=== PATIENT | female | born 1975 | race Caucasian/White ===

== ENCOUNTER → 2018-01-16 | Outpatient (CLI) | payer BC ==
--- NOTE | 2018-01-19 14:59 | MM ---
Reason for exam: screening (asymptomatic). Last mammogram was performed 4 years and 2 months ago. Physical Findings: A clinical breast exam by your physician is recommended on an annual basis and results should be correlated with mammographic findings. MG Screening Mammo w CAD Bilateral CC and MLO view(s) were taken. Prior study comparison: November 09, 2013, bilateral digital screening mammo w/CAD. No significant changes when compared with prior studies. ASSESSMENT: Benign, BI-RAD 2 RECOMMENDATION: Routine screening mammogram of both breasts in 1 year.
== END | disposition home or self-care (01) ==
LOC: RADMAMWWP 08:08
PROVIDERS: ATTEND Obstetrics & Gynecology
DX: Z12.31 Encounter for screening mammogram for malignant neoplasm of breast (principal)
CPT/HCPCS: 77067

== ENCOUNTER → 2018-02-27 | Outpatient (CLI) | payer BC ==
--- NOTE | 2018-02-27 14:41 | US ---
EXAMINATION TYPE: US venous doppler duplex LE LT DATE OF EXAM: 02/27/2018 2:26 PM COMPARISON: NONE CLINICAL HISTORY: M79.609 PAIN RULE OUT DVT. SIDE PERFORMED: Left TECHNIQUE: The lower extremity deep venous system is examined utilizing real time linear array sonog brennen with graded compression, doppler sonography and color-flow sonography. VESSELS IMAGED: External Iliac Vein (EIV) Common Femoral Vein Deep Femoral Vein Greater Saphenous Vein * Femoral Vein Popliteal Vein Small Saphenous Vein * Proximal Calf Veins (* superficial vessels) Patient of large body habitus. Patient couldn't tolerate compression's in groin. Left Leg: Negative for DVT Results phoned to Carmela at Dr. García's office immediately following exam. IMPRESSION: 1. Left lower extremity ultrasound negative for deep venous thrombosis.
== END | disposition home or self-care (01) ==
LOC: RADUSWWP 13:59
PROVIDERS: ATTEND Internal Medicine
DX: M79.605 Pain in left leg (principal)

== ENCOUNTER 2020-06-21 19:41 | Observation (INO) | payer BC ==
[2020-06-21 21:44] LABS: Basophils % (A) 1 %; Eosinophils # (A) 0.1 k/uL (0-0.7); Eosinophils % (A) 1 %; HCT 42.4 % (34.0-46.0); HGB 13.7 gm/dL (11.4-16.0); Lymphocytes # (A) 1.8 k/uL (1.0-4.8); Lymphocytes % (A) 21 %; MCH 29.2 pg (25.0-35.0); MCHC 32.3 g/dL (31.0-37.0); MCV 90.3 fL (80.0-100.0); Mean Platelet Volume 8.6; Monocytes # (A) 0.3 k/uL (0-1.0); Monocytes % (A) 4 %; Neutrophils # (A) 6.4 k/uL (1.3-7.7); Neutrophils % (A) 73 %; Platelet Count 232 k/uL (150-450); RDW 13.1 % (11.5-15.5); WBC 8.7 k/uL (3.8-10.6)
[2020-06-21 21:51] LABS: ALT 21 U/L (4-34); AST 22 U/L (14-36); African American GFR (CKD) >90 (>60 ml/min/1.73 sqM); Albumin 4.5 g/dL (3.5-5.0); Alkaline Phosphatase 68 U/L (38-126); Anion Gap 7 mmol/L; Blood Urea Nitrogen 12 mg/dL (7-17); Calcium 9.5 mg/dL (8.4-10.2); Carbon Dioxide 23 mmol/L (22-30); Chloride 104 mmol/L (98-107); Glucose 101 mg/dL (74-99); Non-African American GFR(CKD) >90 (>60 ml/min/1.73 sqM); Sodium 134 mmol/L (137-145); Total Bilirubin 0.6 mg/dL (0.2-1.3); Total Protein 7.7 g/dL (6.3-8.2)
--- NOTE | 2020-06-21 21:56 | XR ---
EXAMINATION TYPE: XR chest 2V DATE OF EXAM: 06/21/2020 COMPARISON: NONE HISTORY: Short of breath TECHNIQUE: 2 views FINDINGS: Heart and mediastinum are normal. Lungs are clear. Diaphragm is normal. Bony thorax appears normal. IMPRESSION: Normal chest.
[2020-06-21 22:09] LABS: D-Dimer 0.56 mg/L FEU (<0.60); INR 0.9 (<1.2); Partial Thromboplastin Time 22.2 sec (22.0-30.0); Prothrombin Time 9.4 sec (9.0-12.0)
[2020-06-21] MEDS ORDERED: ASPIRIN 81 MG PO STA (22:27)
[2020-06-21] MEDS ORDERED: CALCIUM CARBONATE 500 MG CHEWABLE PO STA (23:18)
[2020-06-21] MEDS ORDERED: NITROGLYCERIN SL TABS 0.4 MG TAB SUBLINGUAL PRN (23:25)
--- NOTE | 2020-06-21 23:27 | ED ---
General Adult HPI - General Chief complaint: Extremity Injury, Lower Stated complaint: SOB,Poss blood clot left leg Time Seen by Provider: 06/21/20 21:15 Source: patient, RN notes reviewed, old records reviewed Mode of arrival: ambulatory Limitations: no limitations - History of Present Illness Initial comments: 45-year-old female patient to ED for evaluation. Patient reports that for the last 3 days she has been having some substernal burning, some generalized chest tightness. She reports that he had some pain in her posterior thigh. Patient had a minor fall yesterday landing on her head. Has been able to without difficulty. As a trauma to head or neck. Denies any prior cardiac history. Denies any other acute complaints. Patient had a cold with past outpatient does not yet have results. Systemic: Pt denies fatigue, fever/chills, rash. Pt denies weakness, night sweats, weight loss. Neuro: Pt denies headache, visual disturbances, syncope or pre-syncope. HEENT: Pt denies ocular discharge or irritation, otalgia, rhinorrhea, pharyngiti s or notable lymphadenopathy. Cardiopulmonary: Pt denies chest pain, SOB, heart palpitations, dyspnea on exertion. Abdominal/GI: Pt denies abdominal pain, n/v/d. : Pt denies dysuria, burning w/ urination, frequency/urgency. Denies new onset urinary or bowel incontinence. MSK: Pt denies myalgia, loss of strength or function in extremities. Neuro: Pt denies new onset weakness, paresthesias. - Related Data Home Medications Medication Instructions Recorded Confirmed Cholecalciferol [Vitamin D3 (25 1,000 unit PO DAILY 06/21/20 06/21/20 Mcg = 1000 Iu)] Allergies Allergy/AdvReac Type Severity Reaction Status Date / Time nickel AdvReac Rash/Hives Verified 06/21/20 21:56 Review of Systems ROS Statement: Those systems with pertinent positive or pertinent negative responses have been documented in the HPI. ROS Other: All systems not noted in ROS Statement are negative. Past Medical History Past Medical History: Thyroid Disorder History of Any Multi-Drug Resistant Organisms: None Reported Additional Past Surgical History / Comment(s): lipoma removed from back, oral surgery Past Anesthesia/Blood Transfusion Reactions: No Reported Reaction Past Psychological History: No Psychological Hx Reported Smoking Status: Former smoker Past Alcohol Use History: Occasional Past Drug Use History: None Reported - Past Family History Father Family Medical History: No Reported History General Exam - General Exam Comments Initial Comments: Constitutional: NAD, AOX3, Pt has pleasant affect. HEENT: NC/AT, trachea midline, neck supple, no lymphadenopathy. Posterior pharynx non erythematous, without exudates. External ears appear normal, without discharge. Mucous membranes moist. Eyes PERRLA, EOM intact. There is no scleral icterus. No pallor noted. Cardiopulmonary: RRR, no murmurs, rubs or gallops, no JVD noted. Lungs CTAB in anterior and posterior landers. No peripheral edema. Abdominal exam: Abdomen soft and non-distended. Abdomen non-tender to palpation in all 4 quadrants. Bowel sounds active in LLQ. No hepatosplenomegaly. No ecchymosis Neuro: CN II-XII grossly intact. No nuchal rigidity. No raccon eyes, no best sign, no hemotympanum. No cervical spinal tenderness. MSK: No posterior calf tenderness bilaterally, homans sign negative bilaterally. Posterior tibialis and radial pulse +2 bilaterally. Sensation intact in upper and lower extremities. Full active ROM in upper and lower extremities, 5/5 stregnth. Mild tenderness to posterior left thigh, small amount of bruising is noted. Limitations: no limitations Course Vital Signs 06/21/20 06/21/20 19:58 22:50 Temperature 100.2 F H 98.3 F Pulse Rate 95 60 Respiratory 18 16 Rate Blood Pressure 147/89 130/76 O2 Sat by Pulse 98 97 Oximetry Medical Decision Making - Medical Decision Making 45-year-old female patient to ED for substernal burning, minimal shortness of breath. Also complains of left posterior thigh pain. Physical exam did display some bruising to the posterior left thigh. Laboratory investigations reveal d- dimer 0.056. Troponin 0.018. Chest x-ray displayed normal chest. EKG is nonischemic. Patient will be admitted to observation for serial troponins. Case discussed Dr. Chen. Admitting physician Dr. Jeffrey. - Lab Data Result diagrams: 06/21/20 21:31 06/21/20 21:31 Lab Results 06/21/20 06/21/20 06/21/20 Range/Units 21:31 21:31 21:31 WBC 8.7 (3.8-10.6) k/uL RBC 4.70 (3.80-5.40) m/uL Hgb 13.7 (11.4-16.0) gm/dL Hct 42.4 (34.0-46.0) % MCV 90.3 (80.0-100.0) fL MCH 29.2 (25.0-35.0) pg MCHC 32.3 (31.0-37.0) g/dL RDW 13.1 (11.5-15.5) % Plt Count 232 (150-450) k/uL MPV 8.6 Neutrophils % 73 % Lymphocytes % 21 % Monocytes % 4 % Eosinophils % 1 % Basophils % 1 % Neutrophils # 6.4 (1.3-7.7) k/uL Lymphocytes # 1.8 (1.0-4.8) k/uL Monocytes # 0.3 (0-1.0) k/uL Eosinophils # 0.1 (0-0.7) k/uL Basophils # 0.0 (0-0.2) k/uL PT 9.4 (9.0-12.0) sec INR 0.9 (<1.2) APTT 22.2 (22.0-30.0) sec D-Dimer 0.56 (<0.60) mg/L FEU Sodium 134 L (137-145) mmol/L Potassium 4.0 (3.5-5.1) mmol/L Chloride 104 (98-107) mmol/L Carbon Dioxide 23 (22-30) mmol/L Anion Gap 7 mmol/L BUN 12 (7-17) mg/dL Creatinine 0.73 (0.52-1.04) mg/dL Est GFR (CKD-EPI)AfAm >90 (>60 ml/min/1.73 sqM) Est GFR (CKD-EPI)NonAf >90 (>60 ml/min/1.73 sqM) Glucose 101 H (74-99) mg/dL Calcium 9.5 (8.4-10.2) mg/dL Magnesium 2.0 (1.6-2.3) mg/dL Total Bilirubin 0.6 (0.2-1.3) mg/dL AST 22 (14-36) U/L ALT 21 (4-34) U/L Alkaline Phosphatase 68 (38-126) U/L Troponin I (0.000-0.034) ng/mL Total Protein 7.7 (6.3-8.2) g/dL Albumin 4.5 (3.5-5.0) g/dL 06/21/20 Range/Units 21:31 WBC (3.8-10.6) k/uL RBC (3.80-5.40) m/uL Hgb (11.4-16.0) gm/dL Hct (34.0-46.0) % MCV (80.0-100.0) fL MCH (25.0-35.0) pg MCHC (31.0-37.0) g/dL RDW (11.5-15.5) % Plt Count (150-450) k/uL MPV Neutrophils % % Lymphocytes % % Monocytes % % Eosinophils % % Basophils % % Neutrophils # (1.3-7.7) k/uL Lymphocytes # (1.0-4.8) k/uL Monocytes # (0-1.0) k/uL Eosinophils # (0-0.7) k/uL Basophils # (0-0.2) k/uL PT (9.0-12.0) sec INR (<1.2) APTT (22.0-30.0) sec D-Dimer (<0.60) mg/L FEU Sodium (137-145) mmol/L Potassium (3.5-5.1) mmol/L Chloride (98-107) mmol/L Carbon Dioxide (22-30) mmol/L Anion Gap mmol/L BUN (7-17) mg/dL Creatinine (0.52-1.04) mg/dL Est GFR (CKD-EPI)AfAm (>60 ml/min/1.73 sqM) Est GFR (CKD-EPI)NonAf (>60 ml/min/1.73 sqM) Glucose (74-99) mg/dL Calcium (8.4-10.2) mg/dL Magnesium (1.6-2.3) mg/dL Total Bilirubin (0.2-1.3) mg/dL AST (14-36) U/L ALT (4-34) U/L Alkaline Phosphatase (38-126) U/L Troponin I 0.018 (0.000-0.034) ng/mL Total Protein (6.3-8.2) g/dL Albumin (3.5-5.0) g/dL - EKG Data -: EKG Interpreted by Me (and Dr. Chen ) EKG Comments: Ventricular rate 77, FL interval 162, QRS 96, QT/QTC 370/14. Normal sensory rhythm, normal EKG, no concern for acute ischemia. Disposition Clinical Impression: Fall, Chest pain Disposition: ADMITTED IP TO THIS HOSP Is patient prescribed a controlled substance at d/c from ED?: No Referrals: None,Stated [Primary Care Provider] - 1-2 days
--- NOTE | 2020-06-21 23:43 | US ---
EXAMINATION TYPE: US venous doppler duplex LE LT DATE OF EXAM: 06/21/2020 11:24 PM COMPARISON: US 2018 CLINICAL HISTORY: pain. Left lateral thigh pain SIDE PERFORMED: Left TECHNIQUE: The lower extremity deep venous system is examined utilizing real time linear array sonog brennen with graded compression, doppler sonography and color-flow sonography. VESSELS IMAGED: Common Femoral Vein Deep Femoral Vein Greater Saphenous Vein * Femoral Vein Popliteal Vein Small Saphenous Vein * Proximal Calf Veins (* superficial vessels) Left Leg: Appears negative for DVT Scanned left lateral thigh: no mass, fluid collection or thrombus seen within superficial vessels a t patient's area of concern. IMPRESSION: No evidence of deep vein thrombosis in the left leg.
--- NOTE | 2020-06-22 01:43 | P.HPIM ---
History of Present Illness H&P Date: 06/22/20 Patient is a 44-year-old female with no known PMH who presented to the emergency room with complaints of shortness of breath and nonproductive cough. The patient reports that she was in her usual state of health until Friday last week when she felt somewhat under the weather and developed a chest tightness. She notes that it was at the same time when she developed a nonproductive cough. She denied sick contacts or any known COVID exposures. She reports decreased exercise tolerance and that she gets winded with simply walking a flight of stairs. She reports subjective fevers at home over the past 1-2 days. She also reports falling yesterday while walking from her house into her garage, and sustaining a left hip and thigh injury. She reports some bruising to the area but otherwise no difficulty ambulating. She underwent an extensive evaluation in the emergency room which was all reviewed. Upon presentation, her temperature was 100.2, BP 147/89, SpO2 98% on room air, and pulse of 95. An EKG revealed normal sinus rhythm at [address]/T-wave changes noted as reviewed by me. Chest x-ray was unremarkable. With a venous doppler negative for DVT. Laboratory evaluation was reviewed with troponin 0.018, d-dimer 0.56, coronavirus PCR negative, and WBC count 8.7. Review of Systems Pertinent positives and negatives as discussed in HPI, a complete review of systems was performed and all other systems are negative. Past Medical History Past Medical History: Thyroid Disorder History of Any Multi-Drug Resistant Organisms: None Reported Additional Past Surgical History / Comment(s): lipoma removed from back, oral surgery Past Anesthesia/Blood Transfusion Reactions: No Reported Reaction Past Psychological History: No Psychological Hx Reported Smoking Status: Former smoker Past Alcohol Use History: Occasional Past Drug Use History: None Reported - Past Family History Father Family Medical History: No Reported History Medications and Allergies Home Medications Medication Instructions Recorded Confirmed Type Cholecalciferol [Vitamin D3 (25 1,000 unit PO DAILY 06/21/20 06/21/20 History Mcg = 1000 Iu)] Allergies Allergy/AdvReac Type Severity Reaction Status Date / Time nickel AdvReac Rash/Hives Verified 06/21/20 21:56 Physical Exam Vitals: Vital Signs Temp Pulse Resp BP Pulse Ox 06/21/20 22:50 98.3 F 60 16 130/76 97 06/21/20 19:58 100.2 F H 95 18 147/89 98 Intake and Output 06/21/20 06/21/20 06/22/20 14:59 22:59 06:59 Other: Weight 120.202 kg General: non toxic, no distress, appears at stated age, morbidly obese Derm: no unusual rashes/lesions no unusual ecchymoses, warm, dry Head: atraumatic, normocephalic, symmetric Eyes: EOMI, no lid lag, anicteric sclera, pupils equal round reactive to light ENT: Nose and ears atraumatic, no thrush, no pharyngeal erythema Neck: No thyromegaly, no cervical lymphadenopathy, trachea midline, supple Mouth: no lip lesion, mucus membranes moist Cardiovascular: S1S2 reg, no murmur, positive posterior tibial pulse bilateral, no edema, capillary refill less than 2 seconds Lungs: CTA bilateral, no rhonchi, no rales , no accessory muscle use Abdominal: soft, nontender to palpation, no guarding, no appreciable organ omegaly, normal bowel sounds Ext: no gross muscle atrophy, left hip mild bruising, muscle strength 5 out of 5 in all 4 extremities grossly, no contractures, Neuro: CN II-XI grossly intact, light touch intact all 4 extremities, finger to nose within normal limits, Psych: Alert, oriented, appropriate affect Results CBC & Chem 7: 06/21/20 21:31 06/21/20 21:31 Labs: Abnormal Lab Results - Last 24 Hours (Table) 06/21/20 Range/Units 21:31 Sodium 134 L (137-145) mmol/L Glucose 101 H (74-99) mg/dL Assessment and Plan Plan: Shortness of breath, COVID vs ACS -Trend troponin for now -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
[2020-06-22] MEDS: HEPARIN SODIUM,PORCINE 5,000 UNIT/ML 1 ML VIAL SQ SCH ×2 (02:12→08:56)
[2020-06-22 03:23] VITALS: RESP 18
[2020-06-22 06:39] LABS: Cholesterol 164 mg/dL (<200); HDL Cholesterol 89 mg/dL (40-60); LDL Cholesterol,Calculated 57 mg/dL (0-99); Triglycerides 92 mg/dL (<150)
--- NOTE | 2020-06-22 08:46 | P.CRDCN ---
History of Present Illness Consult date: 06/22/20 Requesting physician: Nelson Jeffrey Reason for Consult (text): chest pain Chief complaint: difficulty breathing, nonproductive cough, chest tightness History of present illness: This pleasant 45-year-old female with no prior history of hypertension, hyperlipidemia, diabetes who is a prior smoker quit about 3 years ago and drinks at least one glass of wine every evening. She presented to the emergency department with ongoing symptoms of difficulty breathing, chest tightness, fatigue and nonproductive cough. The symptoms started about 8 or 9 days ago. She was recently tested for COVID as an outpatient but has not gotten results of this back yet. She was prompted to come to the emergency department due to worsening of her symptoms. Yesterday morning she woke up with a headache her breathing felt worse and she had a bandlike pain around her chest that was constant with no aggravating or relieving factors. She denies fever at home but did have a temp upon arrival of 100.2F. Covid testing done here was negative. EKG on admission showed sinus rhythm with no evidence of ischemia. Chest x-ray was normal. Serial troponins were drawn and came back to be 0.018, 0.026 and 0.019. She did sustain a fall a few days ago and has been complaining of left thigh pain with some warmth to the touch. Venous duplex study showed no evidence of deep vein thrombosis of the left leg. Overall this morning she is feeling a bit better. She still continues to complain of off strange feeling in her chest especially in the right lower lobe region. And feels that she is wheezy at times. Chest discomfort is improved. Past Medical History Past Medical History: Thyroid Disorder History of Any Multi-Drug Resistant Organisms: None Reported Additional Past Surgical History / Comment(s): lipoma removed from back, oral surgery Past Anesthesia/Blood Transfusion Reactions: No Reported Reaction Past Psychological History: No Psychological Hx Reported Smoking Status: Former smoker Past Alcohol Use History: Occasional Past Drug Use History: None Reported - Past Family History Sister(s) Family Medical History: Diabetes Mellitus Father Family Medical History: No Reported History, Diabetes Mellitus Medications and Allergies Home Medications Medication Instructions Recorded Confirmed Type Cholecalciferol [Vitamin D3 (25 1,000 unit PO DAILY 06/21/20 06/21/20 History Mcg = 1000 Iu)] Allergies Allergy/AdvReac Type Severity Reaction Status Date / Time nickel AdvReac Rash/Hives Verified 06/21/20 21:56 Physical Exam Vitals: Vital Signs Temp Pulse Pulse Resp BP BP Pulse Ox 06/22/20 03:25 74 18 06/22/20 03:17 97.9 F 74 18 119/69 96 06/22/20 02:11 98.8 F 68 19 131/79 98 06/21/20 22:50 98.3 F 60 16 130/76 97 06/21/20 19:58 100.2 F H 95 18 147/89 98 Intake and Output 06/21/20 06/22/20 06/22/20 22:59 06:59 14:59 Other: Voiding Method Toilet Weight 120.202 kg 120.202 kg PHYSICAL EXAMINATION: This is a 45-year-old female in no apparent distress at the time of my examination. VITAL SIGNS: Blood pressure and 119/69, heart rate 74, respirations 18, temp 97.9F. Patient is 96 % on room air. HEENT: Head is atraumatic, normocephalic. Pupils are equal, round. Sclerae anicteric. Conjunctivae are clear. Mucous membranes of the mouth are moist. Neck is supple. There is no elevated jugular venous pressure. No carotid bruit is heard. CHEST EXAMINATION: Clear to auscultation bilaterally. No wheezes rales or rhonchi. Respirations even and nonlabored. HEART EXAMINATION: Heart regular, positive S1 and S2. No S3. No S4. No clicks, rubs or murmurs. ABDOMEN: Soft, nontender. Bowel sounds are heard. No organomegaly noted. EXTREMITIES: 2+ peripheral pulses with no evidence of peripheral edema and no calf tenderness noted. Ecchymosis noted to left lateral thigh. NEUROLOGIC EXAMINATION: Patient is awake, alert and oriented x3. Results 06/21/20 21:31 06/21/20 21:31 Cardiac Enzymes 06/21/20 06/21/20 06/22/20 Range/Units 21:31 21:31 00:30 AST 22 (14-36) U/L Troponin I 0.018 0.026 (0.000-0.034) ng/mL 06/22/20 Range/Units 03:28 AST (14-36) U/L Troponin I 0.019 (0.000-0.034) ng/mL Coagulation 06/21/20 Range/Units 21:31 PT 9.4 (9.0-12.0) sec APTT 22.2 (22.0-30.0) sec Lipids 06/22/20 Range/Units 03:28 Triglycerides 92 (<150) mg/dL Cholesterol 164 (<200) mg/dL HDL Cholesterol 89 H (40-60) mg/dL CBC 06/21/20 Range/Units 21:31 WBC 8.7 (3.8-10.6) k/uL RBC 4.70 (3.80-5.40) m/uL Hgb 13.7 (11.4-16.0) gm/dL Hct 42.4 (34.0-46.0) % Plt Count 232 (150-450) k/uL Comprehensive Metabolic Panel 06/21/20 Range/Units 21:31 Sodium 134 L (137-145) mmol/L Potassium 4.0 (3.5-5.1) mmol/L Chloride 104 (98-107) mmol/L Carbon Dioxide 23 (22-30) mmol/L BUN 12 (7-17) mg/dL Creatinine 0.73 (0.52-1.04) mg/dL Glucose 101 H (74-99) mg/dL Calcium 9.5 (8.4-10.2) mg/dL AST 22 (14-36) U/L ALT 21 (4-34) U/L Alkaline Phosphatase 68 (38-126) U/L Total Protein 7.7 (6.3-8.2) g/dL Albumin 4.5 (3.5-5.0) g/dL Current Medications Generic Name Dose Route Start Last Admin Trade Name Freq PRN Reason Stop Dose Admin Aspirin 325 mg 06/22/20 09:00 Aspirin 325 Mg Tab PO DAILY TONO Heparin Sodium (Porcine) 5,000 unit 06/22/20 02:00 06/22/20 02:12 Heparin Sodium,Porcine 5,000 Unit/Ml 1 Ml Vial SQ 5,000 unit Q8H TONO Administration Nitroglycerin 0.4 mg 06/21/20 23:25 Nitroglycerin Sl Tabs 0.4 Mg Tab SUBLINGUAL Q5M PRN Chest Pain Intake and Output 06/21/20 06/22/20 06/22/20 22:59 06:59 14:59 Other: Voiding Method Toilet Weight 120.202 kg 120.202 kg 06/21/20 21:31 06/21/20 21:31 EKG Interpretations (text) Normal sinus rhythm Assessment and Plan Assessment: #1 symptoms of shortness of breath, nonproductive cough, fatigue and chest discomfort #2 daily alcohol intake #3 prior smoker Plan: From cardiology perspective, an acute coronary event has been ruled out. EKG shows no evidence of ischemia and troponins have been negative 3. Vital signs are stable. Overall she is feeling better. From our standpoint she may be discharged home. She will follow-up in the office with us in a couple of weeks at which time we will likely schedule her for further cardiac evaluation. 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 Patient was seen and examined.
[2020-06-22] MEDS ORDERED: ASPIRIN 81 MG PO SCH (09:00)
[2020-06-22] MEDS ORDERED: ASPIRIN 325 MG TAB PO SCH (09:00)
[2020-06-22 09:22] VITALS: BP 122/72; PULSE 80; TEMP 97.8
--- NOTE | 2020-06-22 09:30 | P.DS ---
Providers Date of admission: 06/22/20 01:45 Attending physician: Nelson Jeffrey MD Consults: 06/21/20 23:25 Consult Physician Urgent Consulting Provider: Shawn Camilo Consult Reason/Comments: chest pain Do you want consulting provider notified?: Yes, Notify in am Primary care physician: Stated None Hospital Course: HPI: Patient is a 44-year-old female with no known PMH who presented to the emergency room with complaints of shortness of breath and nonproductive cough. The patient reports that she was in her usual state of health until Friday last week when she felt somewhat under the weather and developed a chest tightness. She notes that it was at the same time when she developed a nonproductive cough. She denied sick contacts or any known COVID exposures. She reports decreased exercise tolerance and that she gets winded with simply walking a flight of stairs. She reports subjective fevers at home over the past 1-2 days. She also reports falling yesterday while walking from her house into her garage, and sustaining a left hip and thigh injury. She reports some bruising to the area but otherwise no difficulty ambulating. She underwent an extensive evaluation in the emergency room which was all reviewed. Upon presentation, her temperature was 100.2, BP 147/89, SpO2 98% on room air, and pulse of 95. An EKG revealed normal sinus rhythm at [address]/T-wave changes noted as reviewed by me. Chest x-ray was unremarkable. With a venous doppler negative for DVT. Laboratory evaluation was reviewed with troponin 0.018, d-dimer 0.56, coronavirus PCR negative, and WBC count 8.7. Hospital course and treatment patient was admitted with sob , cardiac enzymes negative , ddimer negative . SOB has improved , labs unremarkable . COVID negative she feels better and will be dced home with PCP and cardiology follow up She was evaluated and cleared for dc by cardiology Diagnosis : sob likely acute uri unspecified organism Morbid Obesity BMI 40.3 Patient Condition at Discharge: Good Plan - Discharge Summary Discharge Rx Participant: No New Discharge Prescriptions: Continue Cholecalciferol [Vitamin D3 (25 Mcg = 1000 Iu)] 1,000 unit PO DAILY Discharge Medication List Cholecalciferol [Vitamin D3 (25 Mcg = 1000 Iu)] 1,000 unit PO DAILY 06/21/20 [History] Follow up Appointment(s)/Referral(s): Rhina Valadez MD [STAFF PHYSICIAN] - 2 Weeks None,Stated [Primary Care Provider] - 1-2 days Discharge Disposition: HOME SELF-CARE
== END 2020-06-22 10:50 | disposition home or self-care (01) ==
LOC: EC 19:41 → 1SOBS 06-22 01:45
PROVIDERS: ADMIT Internal Medicine; ATTEND Internal Medicine
DX: R07.89 Other chest pain (principal); R06.02 Shortness of breath; R05 Cough; R50.9 Fever, unspecified; R51.9 Headache, unspecified; M79.652 Pain in left thigh; E07.9 Disorder of thyroid, unspecified; R53.83 Other fatigue; E66.01 Morbid (severe) obesity due to excess calories; Z68.41 Body mass index [BMI] 40.0-44.9, adult; S70.02XA Contusion of left hip, initial encounter; S70.12XA Contusion of left thigh, initial encounter; W19.XXXA Unspecified fall, initial encounter; Y93.01 Activity, walking, marching and hiking; Z20.828 Contact with and (suspected) exposure to other viral communicable diseases; Z79.899 Other long term (current) drug therapy; Z91.048 Other nonmedicinal substance allergy status; Z87.891 Personal history of nicotine dependence; Z83.3 Family history of diabetes mellitus
CPT/HCPCS: 93005 ×2; 96372 ×2; 99285; 36415 ×2; 85379; 80061; 80053; 83735; 84484 ×2; 85025; 85610; 85730; 87635; 71046; 93971; G0378; U0003; J1644

== ENCOUNTER → 2020-08-17 | Outpatient (CLI) | payer BC ==
[2020-08-17 16:40] LABS: Chol/HDL Ratio 2.08; Cholesterol 179 mg/dL (0-200); Triglycerides <50.0 mg/dL (0.0-149.0)
== END | disposition home or self-care (01) ==
LOC: LABWHC1 08:26
DX: Z00.00 Encounter for general adult medical examination without abnormal findings (principal)
CPT/HCPCS: 36415; 80061; 84443

== ENCOUNTER → 2022-07-31 | Outpatient (CLI) | payer BC ==
--- NOTE | 2022-07-31 18:54 | MM ---
Reason for Exam: Screening (asymptomatic). Last mammogram was performed 4 year(s) and 7 month(s) ago. Patient History: Menarche at age 18. First Full-Term at age 32. Late child-bearing (after 32). Patient has history of breast feeding. Last menstrual period: 07/17/2022 Risk Values: [place] 5 year model risk: 1.0%. NCI Lifetime model risk: 11.9%. Prior Study Comparison: 11/09/2013 Bilateral Screening Mammogram, [facility]. 01/16/2018 Bilateral Screening Mammogram, [facility]. Tissue Density: There are scattered fibroglandular densities. Findings: Analyzed By CAD. Focal asymmetry central left breast middle to posterior depth is more defined. This may represent superimposition shadow but further evaluation is recommended. Otherwise, no significant change. Overall Assessment: Incomplete: need additional imaging evaluation, BI-RAD 0 Management: Special View Mammogram of the left breast. Including spot 3-D CC, spot 3-D MLO, and 3 lateral views. Targeted left breast ultrasound if any persisting abnormality. [facility] will attempt to contact patient to return for supplemental views and ultrasound if indicated. Electronically signed and approved by: Triston Saha M.D. Radiologist
== END | disposition home or self-care (01) ==
LOC: RADMAMWWP 07:05
PROVIDERS: ATTEND Obstetrics & Gynecology
DX: Z12.31 Encounter for screening mammogram for malignant neoplasm of breast (principal)
CPT/HCPCS: 77067

== ENCOUNTER → 2022-08-02 | Outpatient (CLI) | payer BC ==
--- NOTE | 2022-08-02 07:24 | MM ---
Reason for Exam: Additional evaluation requested from abnormal screening. Last screening mammogram was performed less than 1 month ago. Patient History: Menarche at age 18. First Full-Term at age 32. Late child-bearing (after 30). Patient has history of breast feeding. Risk Values: Chikis 5 year model risk: 1.0%. NCI Lifetime model risk: 11.9%. Prior Study Comparison: 11/09/2013 Bilateral Screening Mammogram, [facility]. 01/16/2018 Bilateral Screening Mammogram, [facility]. 07/31/2022 Bilateral MG screening mammo w CAD, [facility]. Tissue Density: Left: The breast tissue is heterogeneously dense. This may lower the sensitivity of mammography. Findings: Analyzed By CAD. Focal asymmetry in the central left breast middle to posterior depth does not persist with compression. Overall Assessment: Negative, BI-RAD 1 Management: Screening Mammogram of both breasts in 1 year. A clinical breast exam by your physician is recommended on an annual basis and results should be correlated with mammographic findings. This exam should not preclude additional follow-up of suspicious palpable abnormalities. Results were given to the patient verbally at the time of exam. Electronically signed and approved by: Jason Arnaa D.O.
== END | disposition home or self-care (01) ==
LOC: RADMAMWWP 06:55
PROVIDERS: ATTEND Obstetrics & Gynecology
DX: R92.8 Other abnormal and inconclusive findings on diagnostic imaging of breast (principal)
CPT/HCPCS: 77065

== ENCOUNTER 2023-02-18 12:49 | Outpatient (CLI) | payer BC ==
[2023-02-18 13:17] VITALS: RESP 18; TEMP 97.8
[2023-02-18 15:12] VITALS: BP 135/87; PULSE 76
--- NOTE | 2023-02-19 07:32 | US ---
EXAMINATION TYPE: US FNA thyroid first lesion, US FNA thyroid each add lesion DATE OF EXAM: 02/18/2023 2:48 PM CLINICAL INDICATION:Female, 48 years old with history of E04.1 SINGLE THYROID NODULE; , thyroid nodul e. COMPARISON: 06/21/2016 ATTENDING: Dr. Prasad Tinoco PROCEDURE: Informed consent was obtained. The risks and benefits of the procedure were discussed with the patien t. The site was marked. Timeout procedure was performed Ultrasound imaging of the thyroid demonstrates bilateral thyroid nodules The patient was prepped, draped in the usual sterile fashion, and locally anesthetized with 1% lidoca ine. Five fine needle aspiration were then performed with a 25 gauge needle the right and left thyro id nodules. Samples were sent to the pathology department for further analysis. Patient tolerated th e procedure without incident and was sent home in stable condition. IMPRESSION: Successful ultrasound guided fine needle aspiration.
== END 2023-02-18 14:50 | disposition home or self-care (01) ==
LOC: RADPROMAIN 12:49
PROVIDERS: ATTEND Family Medicine
DX: E04.1 Nontoxic single thyroid nodule (principal)
CPT/HCPCS: 10005; 10006

== ENCOUNTER → 2023-10-21 | Outpatient (CLI) | payer BC ==
--- NOTE | 2023-10-23 22:13 | MM ---
Reason for Exam: Screening (asymptomatic). Last mammogram was performed 1 year(s) and 2 month(s) ago. Patient History: Menarche at age 18. First Full-Term at age 32. Late child-bearing (after 30). Patient has history of breast feeding. Maternal grandmother had ovarian cancer at or over age 50. Last menstrual period: 10/15/2023 Risk Values: Chikis 5 year model risk: 1.1%. NCI Lifetime model risk: 11.8%. Prior Study Comparison: 01/16/2018 Bilateral Screening Mammogram, [facility]. 07/31/2022 Bilateral MG screening mammo w CAD, [facility]. 08/02/2022 Left MG work up mamm w CAD LT, [facility]. Tissue Density: There are scattered areas of fibroglandular density. Findings: Analyzed By CAD. The pattern is symmetrical. No significant interval change. No suspicious groups of microcalcifications, spiculated or lobular masses, architectural distortion or other secondary signs of malignancy are mammographically apparent. Overall Assessment: Negative, BI-RAD 1 Management: Screening Mammogram of both breasts in 1 year. A negative mammogram report should not preclude additional follow up of suspicious palpable abnormalities. Patient should continue monthly self breast exam. A clinical breast exam by your physician is recommended on an annual basis and results should be correlated with mammographic findings. Electronically signed and approved by: Marco Landa D.O. Radiologis
== END | disposition home or self-care (01) ==
LOC: RADMAMWWP 07:24
PROVIDERS: ATTEND Obstetrics & Gynecology
DX: Z12.31 Encounter for screening mammogram for malignant neoplasm of breast (principal)
CPT/HCPCS: 77067

== ENCOUNTER → 2024-01-23 | Outpatient (CLI) | payer BC ==
[2024-01-23 18:17] LABS: HCT 38.7 % (37.2-46.3); HGB 12.3 g/dL (12.0-15.0); MCH 28.5 pg (27.0-32.0); MCHC 31.8 g/dL (32.0-37.0); MCV 89.6 FL (80.0-97.0); NRBC Per 100 WBC 0 X 10*3/uL (0.00-0.01); Platelet Count 235 X 10*3/uL (140-440); RBC 4.32 X 10*6/uL (4.10-5.20); RDW 13.6 % (11.5-14.5); WBC 6.94 X 10*3/uL (4.50-10.00)
[2024-01-23 18:46] LABS: Blood Urea Nitrogen 14.2 mg/dL (9.0-27.0); Chol/HDL Ratio 2.36 Ratio; Glucose 91 mg/dL (70-110); LDL Cholesterol,Calculated 72.2 mg/dL (0.0-131.0)
[2024-01-23 18:47] LABS: ALT 16 U/L (8-44); AST 14 U/L (13-35); Albumin 4.3 g/dL (3.8-4.9); Albumin/Globulin Ratio 1.72 Ratio (1.60-3.17); Alkaline Phosphatase 64 U/L (41-126); Calcium 9.2 mg/dL (8.7-10.3); Carbon Dioxide 25.7 mmol/L (21.6-31.8); Chloride 105 mmol/L (96-109); Globulin 2.5 g/dL (1.6-3.3); Potassium 4.4 mmol/L (3.5-5.5); Sodium 141 mmol/L (135-145); Total Bilirubin 0.3 mg/dL (0.3-1.2); Total Protein 6.8 g/dL (6.2-8.2)
--- NOTE | 2024-01-23 19:27 | US ---
EXAMINATION TYPE: US thyroid st tissue head/neck DATE OF EXAM: 01/23/2024 COMPARISON: US FNA 02/18/2023, thyroid ultrasound 06/21/2016 CLINICAL INDICATION: Female, 49 years old with history of E04.1 NONTOXIC SINGLE THYROID NODULE; Hx of FNA GLAND SIZE: Right Lobe: 5.3 x 2.1 x 2.0 cm Overall Parenchyma: heterogeneous Left Lobe: 4.2 x 1.9 x 1.4 cm Overall Parenchyma: heterogeneous Isthmus Thickness: 0.4 cm NODULES RIGHT: # of nodules measured on right: 3 1. 0.9 X 0.8 x 0.8 cm, upper mid, solid or almost completely solid, hypoechoic nodule, which is as wide as it is tall, with smooth margins, without echogenic foci. TR 4. Prior size: Cannot correlate with certainty 2. 1.7 X 1.7 x 1.1 cm, mid mid, solid or almost completely solid, hypoechoic nodule, which is wider than tall, with smooth margins, with echogenic foci. TR 4. Stable. Prior size: 1.8 cm in transverse from FNA 02/18/2023 3. 1.2 X 1.3 x 1.2 cm, lower mid, solid or almost completely solid, isoechoic nodule, which is wide r than tall, with ill-defined margins, without echogenic foci. TR 3. Prior size: Cannot correlate with certainty LEFT: # of nodules measured on left: 1 1. 1.9 X 1.3 x 1.0 cm, mid mid, solid or almost completely solid, hypoechoic nodule, which is wider than tall, with smooth margins, with echogenic foci. TR 4. Stable. Prior size: 1.7 x 1.2 cm from FNA 02/18/2023 ISTHMUS: # of nodules measured in the isthmus: 0 Bilateral neck scanned, no evidence of lymphadenopathy. IMPRESSION: Stable previously biopsied thyroid nodules. There are 2 small thyroid nodules that are not definitive ly visualized on prior examination. Follow-up ultrasound in one year is recommended.
== END | disposition home or self-care (01) ==
LOC: RADUSWWP 13:10
PROVIDERS: ATTEND Family Medicine
DX: Z00.00 Encounter for general adult medical examination without abnormal findings (principal); E04.2 Nontoxic multinodular goiter; E78.00 Pure hypercholesterolemia, unspecified; E55.9 Vitamin D deficiency, unspecified
CPT/HCPCS: 36415; 76536; 80053; 80061; 82306; 84443; 85027

== ENCOUNTER → 2025-01-21 | Outpatient (CLI) | payer BC ==
--- NOTE | 2025-01-24 08:03 | MM ---
Reason for Exam: Screening (asymptomatic). Last mammogram was performed 1 year(s) and 3 month(s) ago. Patient History: Menarche at age 18. First Full-Term at age 32. Late child-bearing (after 30). Premenopausal. Patient has history of breast feeding. Maternal grandmother had ovarian cancer at or over age 50. Risk Values: Chikis 5 year model risk: 1.1%. NCI Lifetime model risk: 11.4%. Prior Study Comparison: 07/31/2022 Bilateral MG screening mammo w CAD, [facility]. 08/02/2022 Left MG work up mamm w CAD , [facility]. 10/21/2023 Bilateral MG screening mammo w CAD, [facility]. Tissue Density: There are scattered areas of fibroglandular density. Findings: Analyzed By CAD. Outer asymmetric density left cc view middle depth remains unchanged. Other areas of asymmetric density are also unchanged. There is no suspicious group of microcalcifications or new suspicious mass in either breast. Overall Assessment: Benign, BI-RAD 2 Management: Screening Mammogram of both breasts in 1 year. Patient should continue monthly self-breast exams. A clinical breast exam by your physician is recommended on an annual basis. This exam should not preclude additional follow-up of suspicious palpable abnormalities. Note on Chikis scores and lifetime risk: 1. A Chikis score greater than 3% is considered moderate risk. If this is the case, consider specialist referral to assess eligibility for a risk reducing agent. 2. If overall lifetime risk for the development of breast cancer is 20% or higher, the patient may qualify for future screening with alternating mammogram and breast MRI. [facility], , 01/24/2025 7:59 AM. Electronically signed and approved by: Triston Saha M.D. Radiologist
== END | disposition home or self-care (01) ==
LOC: RADMAMWWP 16:11
PROVIDERS: ATTEND Obstetrics & Gynecology
DX: Z12.31 Encounter for screening mammogram for malignant neoplasm of breast (principal); R92.323 Mammographic fibroglandular density, bilateral breasts; Z80.3 Family history of malignant neoplasm of breast
CPT/HCPCS: 77063; 77067

== ENCOUNTER → 2025-01-21 | Outpatient (CLI) | payer BC ==
[2025-01-21 19:16] LABS: Basophils # (A) 0.05 X 10*3/uL (0.00-0.10); Basophils % (A) 0.7 %; Eosinophils # (A) 0.11 X 10*3/uL (0.04-0.35); Eosinophils % (A) 1.6 %; HCT 37.7 % (37.2-46.3); HGB 12.2 g/dL (12.0-15.0); Lymphocytes # (A) 1.71 X 10*3/uL (0.90-5.00); Lymphocytes % (A) 25.3 %; MCH 28.4 pg (27.0-32.0); MCHC 32.4 g/dL (32.0-37.0); MCV 87.9 FL (80.0-97.0); Mean Platelet Volume 11.7 FL (9.5-12.2); Monocytes # (A) 0.35 X 10*3/uL (0.20-1.00); Monocytes % (A) 5.2 %; NRBC Per 100 WBC 0 X 10*3/uL (0.00-0.01); Neutrophils # (A) 4.53 X 10*3/uL (1.80-7.70); Neutrophils % (A) 66.9 %; Platelet Count 253 X 10*3/uL (140-440); RBC 4.29 X 10*6/uL (4.10-5.20); WBC 6.77 X 10*3/uL (4.50-10.00)
[2025-01-21 19:22] LABS: ALT 24 U/L (8-44); AST 23 U/L (13-35); Albumin 4.4 g/dL (3.8-4.9); Albumin/Globulin Ratio 1.83 Ratio (1.60-3.17); Alkaline Phosphatase 71 U/L (41-126); BUN/Creat Ratio 20.29 Ratio (12.00-20.00); Blood Urea Nitrogen 14.2 mg/dL (9.0-27.0); Calcium 8.8 mg/dL (8.7-10.3); Carbon Dioxide 23.5 mmol/L (21.6-31.8); Chloride 104 mmol/L (96-109); Chol/HDL Ratio 2.17 Ratio; Globulin 2.4 g/dL (1.6-3.3); Glucose 91 mg/dL (70-110); LDL Cholesterol,Calculated 86.3 mg/dL (0.0-131.0); Potassium 3.8 mmol/L (3.5-5.5); Sodium 137 mmol/L (135-145); Total Bilirubin <0.2 mg/dL (0.3-1.2); Total Protein 6.8 g/dL (6.2-8.2); VLDL Calculation 13.04 mg/dL (5.00-40.00)
[2025-01-22 00:48] LABS: HIV 2 AB Non-Reactive (Non-Reactive); HIV AB P24 Non-Reactive (Non-Reactive); HIV P24 AG Non-Reactive (Non-Reactive)
== END | disposition home or self-care (01) ==
LOC: LABWHC1 16:27
PROVIDERS: ATTEND Family Medicine
DX: Z00.00 Encounter for general adult medical examination without abnormal findings (principal); Z11.4 Encounter for screening for human immunodeficiency virus [HIV]; E04.1 Nontoxic single thyroid nodule
CPT/HCPCS: 36415; 80053; 80061; 83036; 84443; 85025; 87390